=== PATIENT | male | born 1970 | race African-American/Black ===

== ENCOUNTER 2017-08-02 22:57 | Emergency (ER) | payer BC ==
[2017-08-03] MEDS ORDERED: VANCOMYCIN HCL INJ 1000 MG VIAL IV ONE (00:20)
[2017-08-03] MEDS ORDERED: CEFTRIAXONE INJ 1000 MG VIAL IV ONE (00:20)
[2017-08-03 00:56] LABS: ABSOLUTE BASOPHILS # (AUTO) 0.1 10^3/uL (0.0-0.2); ABSOLUTE EOSINOPHILS # (AUTO) 0.3 10^3/uL (0.0-0.6); ABSOLUTE LYMPHOCYTES (AUTO) 1.5 10^3/uL (0.5-4.7); ABSOLUTE MONOCYTES (AUTO) 1.2 10^3/uL (0.1-1.4); ABSOLUTE NEUT (AUTO) 7.1 10^3/uL (1.7-8.2); BASOPHILS % (AUTO) 0.8 % (0-2); EOSINOPHILS % (AUTO) 2.7 % (0-6); HEMATOCRIT 41.2 % (37.9-51.0); HEMOGLOBIN 13.4 g/dL (13.5-17.0); LYMPHOCYTES % (AUTO) 15.2 % (13-45); MEAN CORPUSCULAR HEMOGLOBIN 27.2 pg (27.0-33.4); MEAN CORPUSCULAR HGB CONC 32.5 g/dL (32.0-36.0); MEAN CORPUSCULAR VOLUME 84 fl (80-97); MONOCYTES % (AUTO) 11.4 % (3-13); PLATELET COUNT 246 10^3/uL (150-450); RED BLOOD COUNT 4.91 10^6/uL (4.35-5.55); RED CELL DISTRIBUTION WIDTH 15.3 % (11.5-14.0); SEGMENTED NEUTROPHILS % (AUTO) 69.9 % (42-78); TOTAL CELLS COUNTED % (AUTO) 100 %; WHITE BLOOD COUNT 10.1 10^3/uL (4.0-10.5)
[2017-08-03 01:11] LABS: ALANINE AMINOTRANSFERASE 34 U/L (21-72); ALBUMIN 3.8 g/dL (3.5-5.0); ALKALINE PHOSPHATASE 79 U/L (38-126); ANION GAP 9 (5-19); ASPARTATE AMINO TRANSFERASE 30 U/L (17-59); BILIRUBIN,DIRECT 0.3 mg/dL (0.0-0.4); BILIRUBIN,TOTAL 0.4 mg/dL (0.2-1.3); BLOOD UREA NITROGEN 19 mg/dL (7-20); CARBON DIOXIDE 25 mmol/L (22-30); CHLORIDE 107 mmol/L (98-107); GLUCOSE 145 mg/dL (75-110); POTASSIUM 3.8 mmol/L (3.6-5.0); SODIUM 140.8 mmol/L (137-145)
--- NOTE | 2017-08-03 01:33 | ER Document Report ---
ED General - General Chief Complaint: Leg Swelling Stated Complaint: SHORT OF BREATH Time Seen by Provider: 08/03/17 00:04 Notes: Patient is 47-year-old male who recently moved here from [place] who presents with complaint of left leg swelling and difficulty breathing. Patient says a few days ago he started left leg was started to swell more than usual. He does have history of lymphedema but says his left leg has become much larger why his right leg has remained the same size. He then started noticed some red blotches along the leg. He has had some cold sweats at times and recently started having difficulty breathing with some mild chest tightness. Patient says that he is always little bit short of breath when he exerts himself but last 2 days has developed much significantly worsening shortness of breath that even occurs with just sitting up or trying to move a little bit in bed. At baseline he is able to normally ambulate. Patient is morbidly obese and currently weighs 272 kg. He is on no medications. He denies previous history of DVT or PE. Patient also mentions that twice he noticed a little bit of blood on toilet tissue when he wiped. He has not noticed any diffuse bleeding from the rectum. No passing clots. No bloody stools. - Related Data Allergies/Adverse Reactions: No Known Allergies Allergy (Unverified 08/02/17 23:12) Past Medical History - Social History Smoking Status: Current Every Day Smoker Chew tobacco use (# tins/day): No Frequency of alcohol use: Social Drug Abuse: None Family History: Reviewed & Not Pertinent Patient has suicidal ideation: No Patient has homicidal ideation: No Endocrine Medical History: Reports: Hx Diabetes Mellitus Type 2 - pre-diabetic Renal/ Medical History: Denies: Hx Peritoneal Dialysis Past Surgical History: Reports: Hx Bowel Surgery - umblical hernia repair Review of Systems - Review of Systems Notes: My Normal Review Basic REVIEW OF SYSTEMS: CONSTITUTIONAL : Denies fever, chills, or sweats. Denies recent illness. EENT: Denies eye, ear, throat, or mouth pain or symptoms. Denies nasal or sinus congestion. CARDIOVASCULAR: Minute chest pain. RESPIRATORY: Difficulty breathing. GASTROINTESTINAL: Denies abdominal pain. Denies nausea, vomiting, or diarrhea. GENITOURINARY: Denies difficulty urinating, painful urination, burning, frequency, or blood in urine. MUSCULOSKELETAL: Left leg swelling and pain. SKIN: Denies rash or skin lesions. HEMATOLOGIC : Denies easy bruising or bleeding. LYMPHATIC: Denies swollen, enlarged glands. NEUROLOGICAL: Denies altered mental status or loss of consciousness. Denies headache. Denies weakness or paralysis or loss of use of either side. Denies problems with gait or speech. Denies sensory or motor loss. ALL OTHER SYSTEMS REVIEWED AND NEGATIVE. Physical Exam - Vital signs Vitals: Temp Pulse Resp BP Pulse Ox 98.9 F 112 H 24 H 138/101 H 95 08/02/17 23:12 08/02/17 23:12 08/02/17 23:12 08/02/17 23:12 08/02/17 23:12 - Notes Notes: General Appearance: Well nourished, alert, cooperative, mild acute distress, no obvious discomfort. Morbidly obese. Patient comes very short of breath with just transition himself in bed. Vitals: reviewed, See vital signs table. Head: no swelling or tenderness to the head Eyes: PERRL, EOMI, Conjuctiva clear Mouth: No decreasd moisture Lungs: No wheezing, No rales, No rhonci, No accessory muscle use, good air exchange bilaterally. Heart: Tachycardic rate, Regular rythm, No murmur, no rub Abdomen: Normal BS, soft, No rigidity, No abdominal tenderness, No guarding, no rebound, no abdominal masses, no organomegaly Hard not in subcutaneous fat likely representing a lipoma. Patient says this has been present for many months. Rectal: Some anal mucosal breakdown with anal fissure present Extremities: strength 5/5 in all extremities, good pulses in all extremities, all patient's extremities are large because of his size; however, his left lower extremity is significantly larger than his right. He does have some erythema from approximately the left knee and below. Is not very hot to touch. Is good distal pulses in the feet. Good capillary refill. Skin: warm, dry, appropriate color, no rash Neuro: speech clear, oriented x 3, normal affect, responds appropriately to questions. Course - Re-evaluation Re-evalutation: 08/03/17 03:16 Currently my concern is that the patient could have a DVT and potentially PE. He could also have a cellulitis being that he does have some redness to the leg with swelling; however, DVT can also have a similar appearance and the patient does not have a fever and does not have a leukocytosis. When I initally evaluated the patient I did go ahead and order antibiotics until I could rule out a different cause of the redness. Unfortunately I am unable to get a venous Doppler tonight and also we do not have the equipment or CT scan large enough to rule out PE. Patient's d-dimer is positive. Being that he does have the significant large left leg with the dyspnea I feel that ruling out PE is appropriate. I expect the patient be dyspneic just based on the size; however, and his both say that up until a few days ago the patient typically does not have much dyspnea except for when he walks for long periods of time. Currently the patient becomes very dyspneic when he is moving around in bed or standing up out of bed. I initially called [facility]. They said they do not have bed availability and would not be accepting him. I then called [facility] who are on complete medical version. I then called [place] who is also on complete medical diversion. I then called [facility] spoke with the transfer center coordinator who then called me back and said that Dr. Pascal, ER physician, would accept the patient as an ER to ER transfer. Patient also did mention a little bit of blood on toilet tissue when he wiped twice. I did do a rectal exam. Patient does have appears to be a little bit of anal mucosal breakdown with an anal fissure. I suspect this is where the blood came from. 08/03/17 03:21 - Vital Signs Vital signs: Temp Pulse Resp BP Pulse Ox 98.9 F 112 H 24 H 138/101 H 95 08/02/17 23:12 08/02/17 23:12 08/02/17 23:12 08/02/17 23:12 08/02/17 23:12 - Laboratory Result Diagrams: 08/03/17 00:45 08/03/17 00:45 Laboratory results interpreted by me: 08/03/17 08/03/17 08/03/17 00:45 00:45 00:45 Hgb 13.4 L RDW 15.3 H D-Dimer 0.88 H Glucose 145 H - EKG Interpretation by Me Additional EKG results interpreted by me: 08/03/17 01:32 EKG is reviewed and interpreted by me. EKG shows sinus rhythm with rate of [address] segment elevation or depression. No ischemic T-wave inversions. QRS duration DE interval and QTc intervals are within normal range. No old EKG available for comparison. Discharge - Discharge Clinical Impression: Pain and swelling of left lower leg, Elevated d-dimer, Anal fissure Dyspnea Qualifiers: Dyspnea type: unspecified Qualified Code(s): R06.00 - Dyspnea, unspecified Condition: Stable Disposition: [facility]
--- NOTE | 2017-08-03 04:29 | RADIOLOGY REPORT (SQ) ---
EXAM DESCRIPTION: Single view of the chest CLINICAL HISTORY: dyspnea COMPARISON: None. FINDINGS: Single frontal view of the chest. The cardiomediastinal silhouette has normal size and contour. No consolidation, pneumothorax, or pleural effusion. No displaced rib fractures identified. Upper abdominal soft tissues are unremarkable. IMPRESSION: 1. No acute pulmonary process identified.
--- NOTE | 2017-08-03 07:36 | EKG REPORT ---
SEVERITY:- ABNORMAL ECG - SINUS RHYTHM NONSPECIFIC INTRAVENTRICULAR CONDUCTION DELAY NONSPECIFIC ST-T CHANGES- INFERIOR LEADS : Confirmed by: Vincent Mooney MD 03-Aug-2017 07:36:10
--- NOTE | 2017-08-03 09:40 | ER Document Report ---
Doctor's Note Notes: 08/03/17 09:39 Reevaluation: Patient is alert, oriented, and coherent. He is borderline hypertensive but otherwise vital signs are satisfactory. He verbalizes no somatic complaints. Transport team is present to transport him to higher level of care. He is stable at this time.
[2017-08-03 09:55] VITALS: BP 133/92
== END 2017-08-03 10:24 | disposition short-term general hospital (02) ==
LOC: ER 22:57
DX: M79.89 Other specified soft tissue disorders (principal); K60.2 Anal fissure, unspecified; R06.00 Dyspnea, unspecified; R79.89 Other specified abnormal findings of blood chemistry; R06.02 Shortness of breath; F17.200 Nicotine dependence, unspecified, uncomplicated; E66.01 Morbid (severe) obesity due to excess calories
CPT/HCPCS: 93005; 99285; 96365; 96366; 96367; 36415; 87040; 83605; 85025; 80053; 84484; 85379; 71045; 93010; 94660; J0696; J3370

== ENCOUNTER 2018-01-29 08:40 | Emergency (ER) | payer BC ==
[2018-01-29] MEDS ORDERED: ASPIRIN 81 MG TABLET, CHEWABLE PO ONE (09:30)
[2018-01-29 09:40] LABS: ABSOLUTE BASOPHILS # (AUTO) 0.1 10^3/uL (0.0-0.2); ABSOLUTE EOSINOPHILS # (AUTO) 0.2 10^3/uL (0.0-0.6); ABSOLUTE LYMPHOCYTES (AUTO) 1.5 10^3/uL (0.5-4.7); ABSOLUTE MONOCYTES (AUTO) 0.6 10^3/uL (0.1-1.4); BASOPHILS % (AUTO) 1.1 % (0-2); EOSINOPHILS % (AUTO) 2.3 % (0-6); HEMATOCRIT 40.5 % (37.9-51.0); HEMOGLOBIN 13.2 g/dL (13.5-17.0); LYMPHOCYTES % (AUTO) 19.7 % (13-45); MEAN CORPUSCULAR HEMOGLOBIN 27.6 pg (27.0-33.4); MEAN CORPUSCULAR HGB CONC 32.7 g/dL (32.0-36.0); MEAN CORPUSCULAR VOLUME 84 fl (80-97); MONOCYTES % (AUTO) 8.5 % (3-13); PLATELET COUNT 228 10^3/uL (150-450); RED BLOOD COUNT 4.79 10^6/uL (4.35-5.55); RED CELL DISTRIBUTION WIDTH 14.9 % (11.5-14.0); SEGMENTED NEUTROPHILS % (AUTO) 68.4 % (42-78); TOTAL CELLS COUNTED % (AUTO) 100 %; WHITE BLOOD COUNT 7.4 10^3/uL (4.0-10.5)
[2018-01-29 10:03] LABS: ANION GAP 8 (5-19); BLOOD UREA NITROGEN 19 mg/dL (7-20); CALCIUM 8.7 mg/dL (8.4-10.2); CARBON DIOXIDE 28 mmol/L (22-30); CHLORIDE 105 mmol/L (98-107); GLUCOSE 118 mg/dL (75-110); POTASSIUM 3.9 mmol/L (3.6-5.0); SODIUM 141.1 mmol/L (137-145)
[2018-01-29 10:27] LABS: A TYPE INFLUENZA AG NEGATIVE (NEGATIVE); B INFLUENZA AG NEGATIVE (NEGATIVE)
--- NOTE | 2018-01-29 11:55 | RADIOLOGY REPORT (SQ) ---
EXAM DESCRIPTION: CHEST SINGLE VIEW COMPLETED DATE/TIME: 01/29/2018 9:31 am REASON FOR STUDY: chst pain COMPARISON: 08/03/2017 EXAM PARAMETERS: NUMBER OF VIEWS: One view. TECHNIQUE: Single frontal radiographic view of the chest acquired. RADIATION DOSE: NA LIMITATIONS: None. FINDINGS: LUNGS AND PLEURA: No focal airspace disease, pleural effusion or pneumothorax. MEDIASTINUM AND HILAR STRUCTURES: No discrete mass. HEART AND VASCULAR STRUCTURES: Normal heart size. No overt edema. BONES: No acute bony abnormality. HARDWARE: None in the chest. OTHER: No other significant finding. IMPRESSION: No evidence of acute cardiopulmonary process. TECHNICAL DOCUMENTATION: JOB ID: [id number] [employer]- All Rights Reserved Reading location - IP/workstation name: [email or web address]
--- NOTE | 2018-01-29 13:12 | EKG REPORT ---
SEVERITY:- NORMAL ECG - SINUS RHYTHM : Confirmed by: Monserrat Chinchilla MD 29-Jan-2018 13:11:37
--- NOTE | 2018-01-29 14:00 | ER Document Report ---
ED General - General Chief Complaint: Chest Pain Stated Complaint: CHEST PAIN, SHORTNESS OF BREATH Time Seen by Provider: 01/29/18 09:12 Mode of Arrival: Ambulatory Information source: Patient TRAVEL OUTSIDE OF THE [place] IN LAST 30 DAYS: No - HPI Patient complains to provider of: Lightheadedness Onset: Other - This is a morbidly obese 48-year-old man with high blood pressure the presents for evaluation of an episode in which he got lightheaded while in the shower today. His notes that he has been under an intense amount of stress lately after having had to lay off several people at work. He denies at this time any symptoms, at the time while he was in the shower he did have some slight discomfort in the chest which dissipated. He never felt short of breath, is never felt anything like this in the past, nothing is made his symptoms worse, time seems to have made them better. He does have a history of lymphedema in the lower extremities which is been evaluated in the past, currently is being treated for high blood pressure. - Related Data Allergies/Adverse Reactions: No Known Allergies Allergy (Verified 01/29/18 08:41) Past Medical History - General Information source: Patient - Social History Smoking Status: Never Smoker Chew tobacco use (# tins/day): No Frequency of alcohol use: None Drug Abuse: None Family History: Reviewed & Not Pertinent Patient has suicidal ideation: No Patient has homicidal ideation: No - Past Medical History Cardiac Medical History: Reports: Hx Hypertension Endocrine Medical History: Reports: Hx Diabetes Mellitus Type 2 - pre-diabetic Renal/ Medical History: Denies: Hx Peritoneal Dialysis Past Surgical History: Reports: Hx Appendectomy, Hx Bowel Surgery - umblical hernia repair Review of Systems - Review of Systems -: Yes All other systems reviewed and negative Physical Exam - Vital signs Vitals: Temp Pulse Resp BP Pulse Ox 98.2 F 91 11 L 166/89 H 99 01/29/18 09:00 01/29/18 09:00 01/29/18 09:00 01/29/18 09:00 01/29/18 09:00 - General General appearance: Appears well In distress: None - HEENT Head: Normocephalic, Atraumatic Eyes: Normal Pupils: PERRL - Respiratory Respiratory status: No respiratory distress Chest status: Nontender Breath sounds: Normal Chest palpation: Normal - Cardiovascular Rhythm: Regular Heart sounds: Normal auscultation Murmur: No - Abdominal Inspection: Morbidly Obese Distension: No distension Bowel sounds: Normal Tenderness: Nontender Organomegaly: No organomegaly - Back Back: Normal, Nontender - Extremities General upper extremity: Normal inspection, Nontender, Normal strength, Normal temperature General lower extremity: Nontender, Edema, Normal strength - Neurological Neuro grossly intact: Yes Cognition: Normal Orientation: AAOx4 Elaine Coma Scale Eye Opening: Spontaneous [place] Coma Scale Verbal: Oriented [place] Coma Scale Motor: Obeys Commands [place] Coma Scale Total: 15 Speech: Normal Motor strength normal: LUE, RUE, LLE, RLE Sensory: Normal - Psychological Associated symptoms: Normal affect, Normal mood Course - Re-evaluation Re-evalutation: 01/29/18 17:14 48-year-old morbidly obese man the presents for evaluation of an episode of lightheadedness while he was in the shower today. Notes that he did have a little bit of discomfort in his chest at that time, denies any loss of consciousness, diaphoresis, emesis, nausea, pain in the right side of the chest , pain down the arms, pain into the back, is never anything like this in the past. Does have lymphedema in the lower extremities. Is treated for high blood pressure. Has no known cardiac disease. Has not seen a vegetable handler in the past. We will plan for troponin x2, EKG, chest x-ray, blood work. EKG is nondiagnostic at this time, troponin is negative, his age is 48, his risk factors are 2 points in his history is a 0 his heart score is a 2. Overall he is skewed low risk on heart score. Given that he is well-appearing at this time nothing obviously interventional occurred to improve his symptoms slowed with time it seems like this is likely related to some other process as opposed to a cardiopulmonary process. His notes that he has been under intense amount of stress. He has not had any events while on monitor in the emergency department is on room air and comfortable. Current plan will be for this patient undergo discharge with return precautions I do not believe this represents a true MO at this time, pulmonary embolism, pneumothorax, aortic dissection or other serious intrathoracic pathology. Do not believe this represents a stroke either. - Vital Signs Vital signs: Temp Pulse Resp BP Pulse Ox 98.2 F 91 22 H 121/74 97 12/11/18 09:00 01/29/18 09:00 01/29/18 13:21 01/29/18 13:22 01/29/18 13:21 - Laboratory Result Diagrams: 01/29/18 09:30 01/29/18 09:30 Laboratory results interpreted by me: 01/29/18 01/29/18 09:30 09:30 Hgb 13.2 L RDW 14.9 H Glucose 118 H Discharge - Discharge Clinical Impression: Palpitation Chest pain Qualifiers: Chest pain type: unspecified Qualified Code(s): R07.9 - Chest pain, unspecified Condition: Good Disposition: HOME, SELF-CARE Instructions: Chest Pain of Unclear Cause ([facility]) Additional Instructions: You were seen today in the emergency department for your chest pain episode. I think that this could be stress related or related to an early viral syndrome. You had a workup including blood tests for damage to the heart. X-rays of your chest. Electrolyte testing and kidney function testing none of which were abnormal today. You should use Tylenol and Motrin as needed for cough or fever and discomfort. Return for any worsening chest pain, worsening shortness of breath, if you become lightheaded or feel as if this is worse. Otherwise follow-up with your primary physician in the coming week. Forms: Elevated Blood Pressure, Return to Work
[2018-01-29 14:15] VITALS: BP 121/74
== END 2018-01-29 14:15 | disposition home or self-care (01) ==
LOC: ER 08:40
DX: R07.9 Chest pain, unspecified (principal); R00.2 Palpitations; R42 Dizziness and giddiness; I89.0 Lymphedema, not elsewhere classified; E66.01 Morbid (severe) obesity due to excess calories; I10 Essential (primary) hypertension
CPT/HCPCS: 36415; 71045; 80048; 84484; 85025; 87804; 93005; 93010; 99285